=== PATIENT | female | born 1945 | race Caucasian/White ===

== ENCOUNTER 2020-12-29 13:41 | Outpatient (REF) | payer OTHER, SELFPAY ==
[2020-12-29 16:55] LABS: Hemoglobin 11.9 g/dl (12.0-16.0); Mean Corpuscular HGB Conc 32.2 g/dl (31.0-35.0); Mean Corpuscular Hemoglobin 28.5 pg (27.0-33.0); Mean Corpuscular Volume 88.7 fL (80-98); Platelet Count 240 X10*3/uL (160-400); Red Blood Count 4.17 X10*6/uL (4.20-5.50); Red Cell Distribution Width 12.7 % (11.0-16.0); White Blood Count 4.9 X10*3/uL (4.8-10.8)
[2020-12-29 17:25] LABS: Alanine Aminotransferase 10 U/L (0-31); Albumin Level 4.2 g/dL (3.5-5.0); Alkaline Phosphatase 55 U/L (39-117); Anion Gap 14 (12-20); Aspartate Amino Transferase 18 U/L (5-31); Bilirubin Total 0.5 mg/dL (0.0-1.0); Blood Urea Nitrogen 16 mg/dL (9-16); Calcium 9.3 mg/dL (8.4-10.2); Carbon Dioxide 26 mmol/L (22-29); Chloride 105 mmol/L (96-108); Estimated Glomerular Filt Rate 54; Glucose Random 82 mg/dL (60-115); Potassium 4.8 mmol/L (3.3-5.1); Sodium 140 mmol/L (135-145); Total Protein 6.8 g/dL (6.5-8.0)
[2020-12-29 17:33] LABS: TSH reflex Free T4 1.52 uIU/mL (0.32-4.0)
[2020-12-29 17:49] LABS: Folate 13.5 ng/mL (> or = 4.0); Vitamin B12 690 pg/mL (200-900)
== END 2020-12-29 13:42 | disposition home or self-care (01) ==
LOC: HO.HMGCLDS 13:41
PROVIDERS: PCP Internal Medicine; Visit Provider Internal Medicine
DX: Z00.00 Encounter for general adult medical examination without abnormal findings (principal); E53.8 Deficiency of other specified B group vitamins; E03.9 Hypothyroidism, unspecified
CPT/HCPCS: 36415; 80053; 82607; 82746; 84443; 85027

== ENCOUNTER → 2021-03-14 14:49 | Outpatient (BNVA) | payer OTHER, SELFPAY | PROVIDERS: PCP Internal Medicine; Visit Provider Anesthesiology ==

== ENCOUNTER 2022-03-19 13:21 | Outpatient (REF) | payer OTHER, SELFPAY ==
[2022-03-19 14:11] LABS: MANUAL DIFF FLAG NO
[2022-03-19 14:20] LABS: Basophils Percent Auto 0.7 % (0-2); Eosinophils Absolute Auto 0.2 X10*3/uL (0.0-0.4); Eosinophils Percent Auto 3.4 % (0-4); Hematocrit 37.3 % (37.0-47.0); Imm Gran Abs Auto 0.02 X10*3/uL (0.00-0.03); Imm Gran Pct Auto 0.4 % (0.0-0.4); Lymphocytes Absolute Auto 1.4 X10*3/uL (1.2-4.9); Lymphocytes Percent Auto 25.3 % (20-40); Mean Corpuscular HGB Conc 32.2 g/dl (31.0-35.0); Mean Corpuscular Hemoglobin 28.2 pg (27.0-33.0); Mean Corpuscular Volume 87.6 fL (80.0-98.0); Mean Platelet Volume 9.9 fL (9.4-12.3); Monocytes Absolute Auto 0.4 X10*3/uL (0.1-1.2); Monocytes Percent Auto 6.9 % (2-11); Neutrophils Absolute Auto 3.4 x10*3/uL (2.0-8.3); Neutrophils Percent Auto 63.3 % (45-73); Platelet Count 225 X10*3/uL (160-400); Red Blood Count 4.26 X10*6/uL (4.20-5.50); Red Cell Distribution Width 13.1 % (11.0-16.0); White Blood Count 5.4 X10*3/uL (4.8-10.8)
[2022-03-19 14:27] LABS: Estimated Average Glucose 105 mg/dL; Hemoglobin A1c % 5.3 %
[2022-03-19 15:01] LABS: Alanine Aminotransferase 14 U/L (0-31); Albumin Level 4.3 g/dL (3.5-5.0); Alkaline Phosphatase 50 U/L (39-117); Anion Gap 13 (12-20); Aspartate Amino Transferase 18 U/L (5-31); Bilirubin Total 0.5 mg/dL (0.0-1.0); Blood Urea Nitrogen 20 mg/dL (9-16); Calcium 9.5 mg/dL (8.4-10.2); Carbon Dioxide 29 mmol/L (22-29); Chloride 105 mmol/L (96-108); Cholesterol 222 mg/dL; Estimated Glomerular Filt Rate 58; Glucose Fasting 95 mg/dL (60-99); HDL Cholesterol 69 mg/dL; LDL Cholesterol Calculated 135 mg/dl; Sodium 142 mmol/L (135-145); Total Protein 7.2 g/dL (6.5-8.0); Triglycerides 92 mg/dL
[2022-03-19 15:23] LABS: TSH reflex Free T4 4.51 uIU/mL (0.32-4.0)
[2022-03-19 15:36] LABS: Folate 16.5 ng/mL (> or = 4.0); Vitamin B12 850 pg/mL (200-900)
[2022-03-19 17:28] LABS: Free T4 (Free Thyroxine) 1.03 ng/dL (0.71-1.85)
[2022-03-19 18:39] LABS: Creatinine Urine 140.44 mg/dL; Microalbum/Creatinine Ratio Ur 3.5 ug/mg cr
== END 2022-03-19 13:22 | disposition home or self-care (01) ==
LOC: HO.HMGCLDS 13:21
PROVIDERS: PCP Internal Medicine; Visit Provider Internal Medicine
DX: R73.9 Hyperglycemia, unspecified (principal); E03.9 Hypothyroidism, unspecified; E53.8 Deficiency of other specified B group vitamins
CPT/HCPCS: 36415; 80053; 80061; 82043; 82607; 82746; 83036; 84439; 84443; 85025

== ENCOUNTER 2024-07-08 13:30 | Outpatient (AMB) | payer OTHER, SELFPAY ==
--- NOTE | 2024-07-08 14:27 | MHC.OFFWIV ---
Intake Vital Signs 07/08/24 14:33 Height 5 ft 5 in Weight 168 lb BMI 28.0 BP 140/90 H Position Sitting Pulse 64 Pulse Source Pulse Oximeter Pulse Oximetry (%) 97 Oxygen Delivery Method Room Air Intake Visit Reasons: EP-let leg pain (amputated) Intake Note: Patient here leg pain, she states it has been bleeding on and off. amputation was in 2016 Patient Tobacco Use Status: Never used Tobacco Allergies morphine Allergy (Unknown, Verified 07/08/24 14:37) Hallucinations Sulfa (Sulfonamide Antibiotics) Allergy (Unknown, Verified 07/08/24 14:37) pt does not remember No Known Allergies Allergy (Verified 07/08/24 14:37) Do you need a note to return to daycare/school/sports/work: No HPI HPI Comments History of Present Illness Details Patient is a 78-year-old female with a left lower leg [id number] amputation and stump since 2016. She tells me the bottom of the dump has a area that has been bleeding for a couple of weeks. She has tried different ointments and Aquaphor and it does not seem to be healing. She tells me that she has not had any fevers, it is not painful, there is no drainage or warmth or redness. She also tells me she has left shoulder pain that is worse when she goes to remove her bra at night. She states it feels like an aching and heaviness. She is on a pain management program that includes ibuprofen and oxycodone. She has not tried any ice or heat. She is curious if this is arthritic pain [facility] Medical History (Updated 07/08/24 @ 15:25 by Mariia Watkins PA-C) Phantom pain following amputation of lower limb nursing home (current) use of opiate analgesic Knee pain, right Vitamin B12 deficiency Annual physical exam Insomnia Depression Hypothyroidism Surgical History (Updated 05/14/23 @ 07:39 by Dorene Coello) S/P partial colectomy H/O colonoscopy History of left below knee amputation Family History (System 05/14/23 @ 07:39 by Dorene Coello) Father No problems noted. Mother No problems noted. Social History (System 05/14/23 @ 07:39 by Dorene Coello) Housing: House Patient Tobacco Use Status: Never used Tobacco e-Cigarette/Vaping Use: Never Used Second Hand Smoke Exposure: No Current occupational status: retired Cognitive needs: No Hearing needs: No Vision needs: Yes Review of Systems Const All systems reviewed & are unremarkable except as noted in HPI and below Physical Exam Vital Signs: Last Vital Signs Pulse 64 07/08/24 14:33 BP 140/90 H 07/08/24 14:33 Pulse Ox 97 07/08/24 14:33 Oxygen Delivery Method Room Air 07/08/24 14:33 BMI result Body Mass Index 28.0 Const General: cooperative, healthy appearing, comfortable, no acute distress and well developed Orientation/consciousness: patient oriented x3 Limitations: other limitations (BKA left knee) HEENT Head: Yes normal to inspection Ears: hearing grossly normal bilaterally General nose exam: Normal external nose present Face and sinus: Yes normal facial exam Eyes General: appearance normal, both eyes and all related structures Neck Neck: Yes normal visual inspection and Yes full ROM Resp Effort & Inspection: normal respiratory effort and able to speak in complete sentences Skin General skin exam: no rashes or lesions noted Neuro General: patient oriented x3 Extrem Other: Left BKA has 0.75 cm linear open wound, not bleeding, no warmth, no drainage, no erythema, not tender to palpation. Assessment & Plan Assessment & Plan (1) Non-healing wound of amputation stump: Code(s): T87.89 - Other complications of amputation stump Plan: Wound does not look infected, applied a small amount of Xeroform and applied a large Band-Aid and instructed her to change this every 2 days. Gave patient extra Xeroform. If she notices any sign of infection such as drainage, warmth or erythema, she should return or follow up with her PCP. If the wound does not heal in the next 1-2 weeks, she should follow up with her PCP. (2) Arthritis pain of shoulder: Code(s): M19.019 - Primary osteoarthritis, unspecified shoulder Plan: Recommended diclofenac gel as likely arthritic in nature. Patient is already on a pain regimen and I did not want to alter this. Coding Level of Care Code Est Pt Level 4 (05754) Diagnoses Non-healing wound of amputation stump T87.89 Arthritis pain of shoulder M19.019
[2024-07-08 14:33] VITALS: BP 140/90; PULSE 64; O2SAT 97; BMI 28.0
== END 2024-07-08 16:02 | disposition home or self-care (01) ==
PROVIDERS: PCP Internal Medicine; Visit Provider Physician Assistant
DX: T87.89 Other complications of amputation stump (principal); M19.019 Primary osteoarthritis, unspecified shoulder

== ENCOUNTER 2025-01-12 12:44 | Outpatient (AMB) | payer OTHER, SELFPAY ==
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
[2025-01-12 12:47] VITALS: BP 134/70; PULSE 65; RESP 18; TEMP 36.8; O2SAT 96; BMI 27.1
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
== END 2025-01-12 15:43 | disposition home or self-care (01) ==
LOC: HO.HMCC 12:44
PROVIDERS: PCP Internal Medicine; Visit Provider Internal Medicine
DX: E03.9 Hypothyroidism, unspecified (principal); Z89.512 Acquired absence of left leg below knee; Z79.891 Long term (current) use of opiate analgesic

== ENCOUNTER → 2025-01-12 12:44 | Outpatient (BNVA) | payer OTHER, SELFPAY | PROVIDERS: PCP Internal Medicine; Visit Provider Internal Medicine | DX: M79.662 Pain in left lower leg (principal); G89.29 Other chronic pain; E03.9 Hypothyroidism, unspecified; Z89.512 Acquired absence of left leg below knee; Z79.891 Long term (current) use of opiate analgesic | CPT/HCPCS: 96127 ==